=== PATIENT | male | born 1985 | race Hispanic/Latino ===

== ENCOUNTER 2021-03-24 17:13 | Emergency (ER) | payer SELFPAY ==
[~2021-03-24] VITALS: Ht 162.6 cm; Wt 68.0 kg
[2021-03-24] MEDS ORDERED: FLUORESCEIN SOD(OPTH) 1 MG STRP OP ONE (17:45)
[2021-03-24 18:38] VITALS: BP 142/89
== END 2021-03-24 19:20 | disposition home or self-care (01) ==
LOC: ER 17:43
DX: H53.8 Other visual disturbances (principal)
CPT/HCPCS: 99282